=== PATIENT | male | born 1975 | race Caucasian/White ===

== ENCOUNTER 2023-06-11 10:43 | Emergency (ER) | payer BC ==
[~2023-06-11] VITALS: Ht 177.8 cm; Wt 83.9 kg
[~2023-06-11 10:43] MED LIST: LISI20TA30 PO; PARO-147 PO
[2023-06-11 10:57] VITALS: BP_SYST 145; PULSE 98; RESP 16; TEMP 97.8; O2SAT 97
--- NOTE | 2023-06-11 11:00 | NUR ---
RECEIVED CALL FROM DR YOON' OFFICE AND INFORMATION TAKEN, FAX NUMBER [id number] AND PAPERWORK RECIEVED.
[2023-06-11 11:27] LABS: EOSINOPHILS % (AUTO) 0.6 % (0.0-4.0); HEMATOCRIT 46.6 % (36-54); LYMPHOCYTES # (AUTO) 0.8 K/uL (1.0-5.5); LYMPHOCYTES % (AUTO) 17.5 % (20.5-51.5); MEAN CORPUSCULAR HEMOGLOBIN 32 pg (27-31); MEAN CORPUSCULAR HGB CONC 34 % (32-36); MEAN CORPUSCULAR VOLUME 94 fL (79.0-98.0); MONOCYTES # (AUTO) 0.6 K/uL (0.0-1.0); MONOCYTES % (AUTO) 13.3 % (1.7-9.3); NEUTROPHILS % (AUTO) 67.6 % (40.0-70.0); PLATELET COUNT (AUTO) 229 K/uL (130-430); RED BLOOD CELL COUNT(AUTO) 4.97 MIL/uL (4.2-6.2); RED CELL DISTRIBUTION WIDTH 12.4 % (9.0-15.0); WHITE BLOOD COUNT (AUTO) 4.5 K/uL (4.8-10.8)
[2023-06-11 11:44] LABS: CALCIUM 9.7 mg/dL (8.4-11.0); CREATININE 0.85 mg/dL (0.55-1.30)
[2023-06-11 11:49] LABS: ALBUMIN 4.5 g/dL (3.4-4.8); TOTAL BILIRUBIN 0.8 mg/dL (0.0-1.0)
--- NOTE | 2023-06-11 11:50 | NUR ---
BROUGHT BACK TO BED IN [facility], WILL ASSUME CARE
--- NOTE | 2023-06-11 11:57 | NUR ---
DR DYER AT BEDSIDE FOR EVALUATION
[2023-06-11] MEDS ORDERED: ACAM333T9 PO (12:13)
[2023-06-11] MEDS ORDERED: LORA-259 PO (12:13)
--- NOTE | 2023-06-11 12:18 | NUR ---
Patient given written and verbal discharge instructions and verbalizes understanding. ER MD discussed with patient the results and treatment provided. Patient in stable condition. ID arm band removed. Rx of CAMPRAL, ATIVAN given. Patient educated on pain management and to follow up with PMD. Pain Scale 0/10. Opportunity for questions provided and answered. Medication side effect fact sheet provided.
== END 2023-06-11 12:18 | disposition home or self-care (01) ==
LOC: SED 10:43
DX: K70.9 Alcoholic liver disease, unspecified (principal); R11.0 Nausea; R53.1 Weakness; I10 Essential (primary) hypertension; F10.20 Alcohol dependence, uncomplicated; Z79.899 Other long term (current) drug therapy; Y90.6 Blood alcohol level of 120-199 mg/100 ml
CPT/HCPCS: 99283; 80053; 85025; 36415; G0482